=== PATIENT | female | born 1975 ===

== ENCOUNTER 2025-05-31 13:45 | Outpatient (CLI) | payer OTHER | END 2025-05-31 13:49 | disposition home or self-care (01) | LOC: SONOGRAMA 13:45 | PROVIDERS: ATTEND Pathology Anatomic Pathology | DX: D34 Benign neoplasm of thyroid gland (principal); E07.89 Other specified disorders of thyroid; C73 Malignant neoplasm of thyroid gland ==

== ENCOUNTER 2025-06-05 09:54 | Day surgery (SDC) | payer OTHER ==
[2025-05-30 07:45] VITALS: BP 150/90
[2025-05-30 07:51] LABS: URINE APPEARANCE Cloudy; URINE BILIRRUBIN Negative (NEGATIVE); URINE BLOOD Negative; URINE COLOR Yellow; URINE GLUCOSE Negative (NEGATIVE); URINE KETONE Negative (NEGATIVE); URINE LEUKOCYTE Negative; URINE NITRATE Negative; URINE PROTEIN Negative (NEGATIVE); URINE UROBILINOGEN 0.2 E.U./dl
[2025-05-30 07:54] LABS: BASO % 1.7 % (0.1-1.2); EOS # 0.09 (0.04-0.54); EOS % 2.6 % (0.7-7.0); LYMPH # 1.68 (1.18-3.74); LYMPH % 47.7 % (19.3-53.1); MEAN PLATELET VOLUME 10.10 fl (9.4-12.4); MONO # 0.33 (0.24-0.82); MONO % 9.4 % (4.7-12.5); NEUT # 1.36 (1.56-6.13); NEUT % 38.6 % (34.0-71.1); RED CELL DISTRIBUTION WIDTH 11.8 % (11.6-14.4)
[2025-05-30 07:55] LABS: URINE BACTERIA 156.0 uL (0.0-1933); URINE EPITHELIAL CELLS 1.9 uL (0.0-38.8); URINE RBC 2.3 uL (0.0-20.8)
[2025-05-30 07:58] LABS: URINE CAST 0.00 uL (0.0-1.40); URINE WBC 1.5 uL (0.0-23.2)
[2025-05-30 08:26] LABS: ALT/SGPT 24.0 U/L (12-78); AST/SGOT 15.0 U/L (15-37); BILIRUBIN TOTAL 0.79 mg/dL (0.3-1.2); BUN CREA RATIO 18.0 (7.0-25.0); CREATININE SERUM 0.6 mg/dL (0.55-1.02); GFR 106.25; GLOBULINA 3.3 G/DL (2.4-3.5); GLUCOSE FASTING 79.0 mg/dL (65-100); OSMOLALITY SERUM 283.0 MOSM/KG (275-295)
[2025-05-30 08:59] LABS: INR 1.05
[~2025-06-05] VITALS: Ht 165.1 cm; Wt 66.7 kg
[2025-06-05] MEDS ORDERED: DEXAMETHASONE SODIUM PHOSPHATE 4 MG/ML VIAL IV ONE (13:15)
[2025-06-05] MEDS ORDERED: hydrALAZINE HCL 20 MG VIAL IV ONE (13:45)
[2025-06-05] MEDS ORDERED: MORPHINE SULFATE 5 MG/ML VIAL IV ONE (15:35)
== END 2025-06-05 17:30 | disposition home or self-care (01) ==
LOC: SURH 09:54 → O/R 09:54 → CIR.AMB 09:54 → O/R 17:30 → CIR.AMB 17:30
PROVIDERS: ATTEND Surgery
DX: D35.1 Benign neoplasm of parathyroid gland (principal); E21.0 Primary hyperparathyroidism